=== PATIENT | male | born 1955 | race Caucasian/White ===

== ENCOUNTER 2017-03-08 13:57 | Inpatient (IN) | payer MEDICARE, OTHER ==
[2017-03-09 06:02] LABS: BASOPHIL 0.2 % (0-2); EOSINOPHIL 3.2 % (0-5); HCT 33.8 % (42.0-52.0); HGB 11.6 g/dl (13.2-18.0); MCH 30.4 pg (25.0-31.0); MCHC 34.3 g/dL (32.0-36.0); MCV 88.7 fL (78.0-100.0); MONOCYTE 10.1 % (0-12); MPV 11.2 fL (6.0-9.5); NEUTROPHIL 63.5 % (41-80); PLT 206 K/uL (150-400); RBC 3.81 M/uL (4.70-6.00); RDW 12.7 % (11.5-14.0); WBC 8.6 K/uL (4.0-10.5)
[2017-03-09 06:17] LABS: POTASSIUM 4.3 mmol/L (3.5-5.1)
== END 2017-03-19 14:10 | disposition home or self-care (01) | DRG 554 ==
LOC: FSNU 13:57
PROVIDERS: ADMIT Internal Medicine
DX: M17.12 Unilateral primary osteoarthritis, left knee (principal); I10 Essential (primary) hypertension; Z47.1 Aftercare following joint replacement surgery; Z96.652 Presence of left artificial knee joint; E53.8 Deficiency of other specified B group vitamins; K21.9 Gastro-esophageal reflux disease without esophagitis; N40.0 Benign prostatic hyperplasia without lower urinary tract symptoms; G89.4 Chronic pain syndrome; F41.9 Anxiety disorder, unspecified; F32.9 Major depressive disorder, single episode, unspecified; H91.90 Unspecified hearing loss, unspecified ear; Z86.14 Personal history of Methicillin resistant Staphylococcus aureus infection; Z98.84 Bariatric surgery status
CPT/HCPCS: 36415; 80048; 85025; 97110; 97116; 97163; 97166; 97530; 97530-GP; 97535; J3420

== ENCOUNTER 2021-01-03 03:59 | Emergency (ER) | payer MEDICARE, OTHER ==
[2021-01-03 04:50] LABS: BILIRUBIN NEGATIVE (NEGATIVE); BLOOD NEGATIVE Ery/uL (NEGATIVE); CLARITY CLEAR (CLEAR); COLOR YELLOW (YELLOW); GLUCOSE (U) NORMAL (NORMAL); LEUKOCYTES NEGATIVE Leu/uL (NEGATIVE); NITRITE NEGATIVE (NEGATIVE); PROTEIN NEGATIVE (NEGATIVE); SPECIFIC GRAVITY 1.025 (1.001-1.030); pH 5.5 (5.0-9.0)
[2021-01-03 04:57] LABS: BASOPHIL 0.8 % (0-2); EOSINOPHIL 1.8 % (0-7); HCT 34.1 % (42.0-52.0); HGB 10.9 g/dl (13.2-18.0); LYMPHOCYTE 19.9 % (15-48); MCH 30.4 pg (25.0-31.0); MONOCYTE 8.7 % (0-12); MPV 11.7 fL (6.0-9.5); NEUTROPHIL 67.8 % (41-80); NRBC 0; PLT 256 K/uL (150-400); RBC 3.59 M/uL (4.70-6.00); RDW 12.8 % (11.5-14.0)
[2021-01-03 05:14] LABS: BILIRUBIN - TOTAL 0.4 mg/dL (0.2-1.0); BUN/CREAT RATIO (CALC) 27.7 RATIO; C-REACTIVE PROTEIN 1.5 mg/dL (<=0.90); CREATININE 0.94 mg/dL (0.67-1.17); GLOBULIN (CALCULATION) 3.1 g/dL; POTASSIUM 3.9 mmol/L (3.5-5.1); TOTAL PROTEIN 6.1 g/dL (6.4-8.2)
[2021-01-03 05:18] LABS: LACTIC ACID 1.1 mmol/L (0.4-1.9)
[2021-01-03] MEDS ORDERED: MEDROL 4MG DOSEP4 MG PO (08:37)
[2021-01-03] MEDS ORDERED: LEVAQUIN500 MG PO (08:37)
[2021-01-03] MEDS ORDERED: UROCIT-K10 MEQ PO (08:37)
== END 2021-01-03 08:54 | disposition home or self-care (01) ==
LOC: FER 03:59
PROVIDERS: Emergency Medicine Emergency Medical Services
DX: M54.5 Low back pain (principal); G89.29 Other chronic pain; R10.9 Unspecified abdominal pain; J18.9 Pneumonia, unspecified organism; I49.3 Ventricular premature depolarization; R60.0 Localized edema; I10 Essential (primary) hypertension; R41.0 Disorientation, unspecified; Z87.442 Personal history of urinary calculi; Z88.0 Allergy status to penicillin; Z87.39 Personal history of other diseases of the musculoskeletal system and connective tissue
CPT/HCPCS: 36415; 72148; 80053; 81003; 83605; 84145; 85025; 86140; 93005; J1100; J1170; J1885; J2175; J2405; J2800; J3010; J7030; J7050

== ENCOUNTER 2021-10-22 09:23 | Emergency (ER) | payer MEDICARE, OTHER ==
[~2021-10-22 09:23] MED LIST: LEVAQUIN500 MG PO; MEDROL 4MG DOSEP4 MG PO; UROCIT-K10 MEQ PO
[2021-10-22 11:55] LABS: BASOPHIL 0.3 % (0-2); EOSINOPHIL 0.7 % (0-7); HCT 34.7 % (42.0-52.0); HGB 10.7 g/dl (13.2-18.0); MCH 27.6 pg (25.0-31.0); MCHC 30.8 g/dL (32.0-36.0); MCV 89.4 fL (78.0-100.0); MONOCYTE 7.6 % (0-12); MPV 12.9 fL (6.0-9.5); NRBC 0; PLT 162 K/uL (150-400); RBC 3.88 M/uL (4.70-6.00); RDW 14.9 % (11.5-14.0); WBC 15.2 K/uL (4.0-10.5)
[2021-10-22 12:15] LABS: INR 1.04 (0.9-1.2)
[2021-10-22 12:16] LABS: PTT 31.2 SECONDS (24.4-34.7)
[2021-10-22 12:40] LABS: BUN/CREAT RATIO (CALC) 30.1 RATIO; CREATININE 1.13 mg/dL (0.67-1.17); POTASSIUM 3.9 mmol/L (3.5-5.1)
[2021-10-22] MEDS ORDERED: CEPHALEXIN500 MG PO (13:16)
== END 2021-10-22 13:49 | disposition home or self-care (01) ==
LOC: FER 09:23
PROVIDERS: Internal Medicine
DX: L03.116 Cellulitis of left lower limb (principal); S90.32XA Contusion of left foot, initial encounter; M21.611 Bunion of right foot; I10 Essential (primary) hypertension
CPT/HCPCS: 36415; 73700; 80048; 85025; 85610; 85730; 93971

== ENCOUNTER 2021-12-21 12:30 | Emergency (ER) | payer MEDICARE, OTHER ==
[~2021-12-21 12:30] MED LIST changes: +CEPHALEXIN500 MG PO
== END 2021-12-21 15:37 | disposition home or self-care (01) ==
LOC: FER 12:30
DX: R60.0 Localized edema (principal); I10 Essential (primary) hypertension; Z88.0 Allergy status to penicillin; Z88.8 Allergy status to other drugs, medicaments and biological substances
CPT/HCPCS: 93971